=== PATIENT | male | born 1995 | race Hispanic/Latino ===

== ENCOUNTER 2018-05-22 23:29 | Observation (INO) | payer BC, OTHER ==
[~2018-05-22] VITALS: Ht 170.2 cm; Wt 86.2 kg
[2018-05-22] MEDS ORDERED: SODIUM CHLORIDE 0.9% 1000ML 1,000 ML IV STA (23:40)
[2018-05-22] MEDS ORDERED: ACETAMINOPHEN 325 MG TAB PO ONE (23:45)
[2018-05-22] MEDS ORDERED: ASPIRIN 81 MG CHEW TAB PO ONE (23:45)
[2018-05-23 00:03] LABS: BASOPHILS % 0.5 % (0.0-1.0); EOSINOPHILS # (AUTO) 0.1 (0.0-0.4); HEMATOCRIT 45.8 % (38.2-49.6); HEMOGLOBIN 15.6 g/dL (14.0-18.0); LYMPHOCYTES # (AUTO) 2.2 (1.0-3.2); LYMPHOCYTES % 26.7 % (18.0-39.1); MEAN CORPUSCULAR HEMOGLOBIN 27.4 pg (28-32); MEAN CORPUSCULAR HGB CONC 34.1 g/dL (31-35); MEAN CORPUSCULAR VOLUME 80.5 fL (81-99); MONOCYTES # (AUTO) 0.6 (0.2-0.8); MONOCYTES % 6.7 % (4.4-11.3); NEUTROPHILS # (AUTO) 5.3 (2.1-6.9); NEUTROPHILS % 64.7 % (38.7-80.0); PLATELET COUNT 208 x10e3/uL (140-360); RED BLOOD COUNT 5.69 x10e6/uL (4.3-5.7); RED CELL DISTRIBUTION WIDTH 13.1 % (11.7-14.4)
--- NOTE | 2018-05-23 00:14 | Diagnostic Imaging Report ---
EXAMINATION: CHEST 2 VIEWS INDICATION: ^Chest pain, look for CHF, enlarge Mediastinum COMPARISON: None FINDINGS: PA and lateral views TUBES and LINES: None. LUNGS: Lungs are well inflated. There is no evidence of pneumonia or pulmonary edema. PLEURA: No pleural effusion or pneumothorax. HEART AND MEDIASTINUM: The cardiomediastinal silhouette is unremarkable. BONES AND SOFT TISSUES: No acute osseous lesion. Soft tissues are unremarkable. UPPER ABDOMEN: No free air under the diaphragm. IMPRESSION: No acute thoracic abnormality. Signed by: Dr. Angel Whittaker MD on 05/23/2018 12:10 AM
[2018-05-23 00:21] LABS: ALANINE AMINOTRANSFERASE 79 IU/L (0-55); ALBUMIN 4.3 g/dL (3.5-5.0); ALBUMIN/GLOBULIN RATIO 1.2 (0.8-2.0); ALKALINE PHOSPHATASE 95 IU/L (40-150); ANION GAP 16.4 mmol/L (8-16); BLOOD UREA NITROGEN 13 mg/dL (7-26); BUN/CREATININE RATIO 12 (6-25); CARBON DIOXIDE 20 mmol/L (22-29); CHLORIDE 107 mmol/L (98-107); CREATINE KINASE 109 IU/L (30-200); CREATININE, SERUM 1.05 mg/dL (0.72-1.25); EST GLOMERULAR FILTRATION RATE > 60 ML/MIN (60-); GLUCOSE 133 mg/dL (74-118); POTASSIUM 3.4 mmol/L (3.5-5.1); SODIUM 140 mmol/L (136-145); STREPTOCOCCUS GRP A ANTIGEN NEGATIVE (NEGATIVE)
[2018-05-23 00:29] LABS: COLOR,URINE YELLOW (YELLOW)
[2018-05-23 00:30] LABS: BILIRUBIN,URINE NEGATIVE (NEGATIVE); CLARITY,URINE SL CLOUDY (CLEAR); KETONES,URINE NEGATIVE (NEGATIVE); LEUKOCYTE ESTERASE ,URINE NEGATIVE (NEGATIVE); NITRITE,URINE NEGATIVE (NEGATIVE); PROTEIN,URINE DIPSTICK NEGATIVE (NEGATIVE); URINE UROBILINOGEN 0.2 mg/dL (0.2 - 1)
[2018-05-23 00:31] LABS: BACTERIA,URINE FEW /HPF; EPITHELIAL CELLS,URINE RARE /LPF
[2018-05-23 00:35] LABS: INFLUENZAE A&B ANTIGEN (RAPID) NEGATIVE (NEGATIVE)
[2018-05-23] MEDS ORDERED: DIPHENHYDRAMINE HCL INJ 50 MG/ML VIAL IV PRN (00:45)
[2018-05-23] MEDS ORDERED: MORPHINE SULFATE INJ 4 MG/ML INJ 1ML IV PRN (00:45)
[2018-05-23] MEDS ORDERED: ONDANSETRON HCL INJ 2MG/ML 2ML 2 MG/ML VIAL IV PRN (00:45)
[2018-05-23] MEDS ORDERED: CEFEPIME HCL 2 GM VIAL IV SCH (00:45)
[2018-05-23] MEDS ORDERED: ACETAMINOPHEN 325 MG TAB PO PRN (00:45)
[2018-05-23] MEDS ORDERED: IBUPROFEN 200 MG TAB PO PRN (00:45)
[2018-05-23] MEDS ORDERED: ZOLPIDEM TARTRATE 5 MG TAB PO PRN (00:45)
[2018-05-23 00:52] LABS: CREATINE KINASE MB < 1.00 ng/mL (0-4.3)
--- OUTSIDE RECORDS SUMMARY | 2018-05-23 00:56 | XMS REPORT ---
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 Allergies, Adverse Reactions, Alerts This patient has no known allergies or adverse reactions. Medications This patient has no known medications. Results Test Description Test Time Test Comments Text Results Atomic Results Result Comments CHEST 2 VIEWS 2018-05-23 00:10:00 [place] [address] Patient Name: ALFONZO HOBBS MR #: [id number] : 1995 Age/Sex: 23/M Req #: [id number] Adm Physician: Ordered by: WALE MACKAY MD Report #: [id number] Location: ER Room/Bed: Procedure: [id number] DX/CHEST 2 VIEWS Exam Date: 05/22/18 Exam Time: 2354 REPORT STATUS: Signed EXAMINATION: CHEST 2 VIEWS INDICATION: Chest pain, look for CHF, enlarge Mediastinum COMPARISON: None FINDINGS: PA and lateral views TUBES and LINES: None. LUNGS: Lungs are well inflated. There is no evidence of pneumonia or pulmonary edema. PLEURA: No pleural effusion or pneumothorax. HEART AND MEDIASTINUM: The cardiomediastinal silhouette is unremarkable. BONES AND SOFT TISSUES: No acute osseous lesion. Soft tissues are unremarkable. UPPER ABDOMEN: No free air under the diaphragm. IMPRESSION: No acute thoracic abnormality. Signed by: Dr. Angel Whittaker MD on 05/23/2018 12:10 AM Dictated By: ANGEL WHITTAKER MD Transcribed By: ANAYA on 05/23/189 COPY TO: WALE MACKAY MD
[2018-05-23] MEDS ORDERED: no home meds (00:57)
[2018-05-23] MEDS ORDERED: CEFEPIME 2 GM/NS 0.9% 100 ML 100 ML IV ONE (02:10)
[2018-05-23] MEDS: VANCOMYCIN 1GM/NS 250 ML 250 ML IV SCH ×2 (02:21→14:20)
[2018-05-23 08:08] VITALS: BP 154/97
[2018-05-23 08:15] VITALS: BP 154/97
--- NOTE | 2018-05-23 08:16 | NUR ---
patient received from ER via WC, see admit assess. no fever at this time. no complaints of pain. vitals sable with no distress.
[2018-05-23 08:21] VITALS: BP 154/97
[2018-05-23] MEDS: FAMOTIDINE 20 MG TAB PO SCH ×2 (09:23→16:48)
[2018-05-23] MEDS ORDERED: HYDRALAZINE HCL 20 MG/ML VIAL IV PRN (09:45)
[2018-05-23] MEDS ORDERED: LISINOPRIL 10 MG TAB PO SCH (09:45)
[2018-05-23] MEDS ORDERED: POTASSIUM CHLORIDE 20 MEQ TAB CR PO NR (10:00)
[2018-05-23 12:50] VITALS: BP 143/77
[2018-05-23] MEDS: CEFEPIME 2 GM/NS 0.9% 100 ML 100 ML IV SCH (14:20)
--- NOTE | 2018-05-23 15:04 | Diagnostic Imaging Report ---
CT BRAIN WO HISTORY: Dizziness COMPARISON: None. TECHNIQUE: Noncontrast axial scans were obtained from skull base to the vertex. Coronal and sagittal reconstructions obtained from the axial data. One or more of the following dose reduction techniques were used: Automated exposure control, adjustment of the mA and/or kV according to patient size, and/or utilization of iterative reconstruction technique. DISCUSSION: Scalp/Skull: Unremarkable. Brain sulci: Appropriate for patient's age. Ventricles: Normal in size and configuration. No hydrocephalus. Extra-axial spaces: Focal prominent subarachnoid spaces along the right anterior temporal pole and left posterior cerebellar vermis are likely due to small arachnoid cysts. No additional masses or fluid collections. Parenchyma: No abnormal densities. No mass, hemorrhage, or large vascular territory acute infarct. Dural sinuses: No abnormal densities. Sellar/Suprasellar region: Intact. Skull base: Intact. Incidental findings: None. IMPRESSION: 1. No acute intracranial abnormalities. 2. Suspected small arachnoid cysts along the right anterior temporal pole and left posterior cerebellar vermis. Signed by: Dr. Сергей Clemente M.D. on 05/23/2018 3:01 PM
--- NOTE | 2018-05-23 15:11 | Diagnostic Imaging Report ---
EXAM: CT Abdomen WITH contrast INDICATION: Possible liver mass on echocardiography. Elevated LFTs. COMPARISON: None. TECHNIQUE: Abdomen was scanned utilizing a multidetector helical scanner from the lung base to the iliac crest after administration of IV contrast. Coronal and sagittal reformations were obtained. Routine protocol was performed. Scan was performed when during portal venous phase. IV CONTRAST: 100 cc of Isovue 370. ORAL CONTRAST: Water RADIATION DOSE: Total DLP: 1406 mGy*cm COMPLICATIONS: None FINDINGS: LINES and TUBES: None. LOWER THORAX: Unremarkable HEPATOBILIARY: Diffuse fatty liver. No focal hepatic lesions. No biliary ductal dilation. GALLBLADDER: No radio-opaque stones or sludge. No wall thickening. SPLEEN: No splenomegaly. PANCREAS: No focal masses or ductal dilatation. ADRENALS: No adrenal nodules KIDNEYS/URETERS: Kidneys enhance symmetrically. No hydronephrosis. No cystic or solid mass lesions. No stones. GI TRACT: No abnormal distention, wall thickening, or evidence of bowel obstruction. LYMPH NODES: No lymphadenopathy. VESSELS: Unremarkable. PERITONEUM / RETROPERITONEUM: No free air or fluid. BONES: Unremarkable. SOFT TISSUES: Unremarkable. IMPRESSION: Diffuse fatty liver without CT evidence of hepatic mass. Signed by: Dr. Elaine Michaud MD on 05/23/2018 3:07 PM
[2018-05-23 15:54] VITALS: BP 146/91
--- NOTE | 2018-05-23 19:00 | NUR ---
Report taken from previous nurse. call salcido within reach.
[2018-05-23 20:00] VITALS: BP 131/85
[2018-05-24] VITALS (7 sets, daily range): BP systolic 113–130; BP diastolic 60–83
[2018-05-24] MEDS: VANCOMYCIN 1GM/NS 250 ML 250 ML IV SCH ×2 (00:49→12:36)
--- NOTE | 2018-05-24 00:56 | Consultation ---
DATE OF CONSULTATION: 05/23/2018 Cardiology Consultation REASON FOR CONSULTATION: Tachycardia. HISTORY OF PRESENT ILLNESS: This is a 23-year-old man with a history of kidney stones. He was in the emergency department with feeling unwell and that his heart was racing. Upon arrival here, the patient was noted to be febrile with tachycardia. He denies any chest pain, shortness of breath, abdominal pain, cough, congestion, URI symptoms, rash, or sick contacts. He denies any cardiovascular history. PAST MEDICAL HISTORY: As stated above. PAST SURGICAL HISTORY: None recent. PAST FAMILY HISTORY: No premature coronary artery disease or sudden cardiac . SOCIAL HISTORY: No illicit drug use, alcohol use, or tobacco use. ALLERGIES: NO KNOWN DRUG ALLERGIES. MEDICATIONS: See medication reconciliation form. PHYSICAL EXAMINATION: VITAL SIGNS: Temperature is 99.2, heart rate is 109, respirations are 20, blood pressure is 146/91, oxygen saturation 98% on room air. GENERAL: He is a well-appearing, well-built male, lying comfortably in bed. HEAD: Normocephalic, atraumatic. EYES: Extraocular movements are intact. Conjunctivae are clear. NECK: No JVD. No bruits. CARDIOVASCULAR: Regular rate and rhythm. Normal S1 and S2. LUNGS: Clear to auscultation bilaterally. No wheezing. No rales. ABDOMEN: Soft, nontender, nondistended. Normal bowel sounds. EXTREMITIES: No clubbing, cyanosis, or edema. VASCULAR: 2+ pulses. SKIN: Warm, dry, and intact. NEUROLOGIC: No focal deficits noted. LABORATORY AND RADIOGRAPHIC DATA: All laboratory data reviewed. Negative troponin. Negative BNP. 2D echocardiogram showed preserved left ventricular systolic function. No valvular abnormalities. No vegetations. Carotid artery Doppler study showed normal velocities without stenosis. CT of the pelvis and abdomen showed diffuse fatty liver without any hepatic mass. Chest x-ray shows no acute thoracic abnormality. A 12-lead electrocardiogram shows sinus tachycardia. IMPRESSION: 1. Sinus tachycardia. 2. Fever. RECOMMENDATIONS: Continue infectious evaluation per primary team. The patient has a normal echocardiogram without any vegetations. CT abdomen was normal. No further cardiac workup is necessary. Law Reveles DO BM/MODL /[id number]
[2018-05-24 03:20] LABS: BASOPHILS % 0.4 % (0.0-1.0); EOSINOPHILS # (AUTO) 0.1 (0.0-0.4); EOSINOPHILS % 1.3 % (0.0-6.0); HEMOGLOBIN 14.5 g/dL (14.0-18.0); LYMPHOCYTES # (AUTO) 3.2 (1.0-3.2); LYMPHOCYTES % 39.1 % (18.0-39.1); MEAN CORPUSCULAR HEMOGLOBIN 27.5 pg (28-32); MEAN CORPUSCULAR HGB CONC 33.7 g/dL (31-35); MEAN CORPUSCULAR VOLUME 81.4 fL (81-99); MONOCYTES # (AUTO) 0.5 (0.2-0.8); MONOCYTES % 6.4 % (4.4-11.3); NEUTROPHILS # (AUTO) 4.3 (2.1-6.9); NEUTROPHILS % 52.4 % (38.7-80.0); PLATELET COUNT 192 x10e3/uL (140-360); RED BLOOD COUNT 5.28 x10e6/uL (4.3-5.7); RED CELL DISTRIBUTION WIDTH 13.4 % (11.7-14.4)
[2018-05-24 03:41] LABS: ANION GAP 11.7 mmol/L (8-16); BLOOD UREA NITROGEN 10 mg/dL (7-26); BUN/CREATININE RATIO 12 (6-25); CALCIUM 9.5 mg/dL (8.4-10.2); CARBON DIOXIDE 21 mmol/L (22-29); CHLORIDE 106 mmol/L (98-107); CREATININE, SERUM 0.86 mg/dL (0.72-1.25); EST GLOMERULAR FILTRATION RATE > 60 ML/MIN (60-); GLUCOSE 94 mg/dL (74-118); MAGNESIUM 2.5 MG/DL (1.3-2.1); POTASSIUM 3.7 mmol/L (3.5-5.1); SODIUM 135 mmol/L (136-145)
[2018-05-24 03:44] LABS: ALBUMIN 4.1 g/dL (3.5-5.0); BILIRUBIN,DIRECT 0.2 mg/dL (0.0-0.5)
[2018-05-24] MEDS: CEFEPIME 2 GM/NS 0.9% 100 ML 100 ML IV SCH ×2 (03:48→15:32)
[2018-05-24 04:16] LABS: B-TYPE NATRIURETIC PEPTIDE2 10.2 pg/mL (0-100)
--- NOTE | 2018-05-24 07:23 | NUR ---
Report given to oncoming nurse. Patient in no pain or distress. Call light within reach. Family member at bedside.
[2018-05-24] MEDS: LISINOPRIL 20 MG TAB PO SCH (09:00)
[2018-05-24] MEDS: FAMOTIDINE 20 MG TAB PO SCH ×2 (09:01→16:40)
--- NOTE | 2018-05-24 10:54 | NUR ---
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 CM/SW role and care transitions discussed. Anticipated discharge plan discussed along with duration of care. CM/SW discussed patients right to make decisions in care. CM/SW work hours given. Patient lives: HOUSE WITH FAMILY Admit/Transfer: VIA ED POA/Emergency contact: BROTHER MARTINA [phone] Current/Previous Home Health: NONE PCP/Follow-up Care: NONE Current/Previous DME: NONE Other Services: NONE Employment Status: CONSTRUCTION Areas of Concerns: NONE Referral Needs: NONE Education Needs: NONE IMM/BERNAL given and signed (if applicable):NA Goal for discharge:RETURN HOME CM/SW left business card at the bedside with contact information. Name and number was also written on the patients whiteboard. Patient verbalized understanding of discussion. CM will follow-up with ongoing discharge and transition of care needs.
--- NOTE | 2018-05-24 17:10 | Progress Note ---
DATE: 05/24/2018 Cardiology Progress Note SUBJECTIVE: No major events overnight. OBJECTIVE: VITAL SIGNS: Temperature afebrile, pulse 90, respiratory rate 18, blood pressure 123/71, and saturating 97% on room air. GENERAL: A well-developed, well-nourished man, in no acute distress. CARDIOVASCULAR: Regular rate and rhythm. No murmurs, rubs, or gallops. Palpable cardiac pulses. Palpable radial pulses. LUNGS: Clear to auscultation bilaterally. ABDOMEN: Soft, nontender, nondistended. NEUROLOGIC: Intact. Alert and oriented to person, place, and time. Normal affect. INPATIENT MEDICATIONS: Reviewed. LABORATORY DATA: Reviewed. TELEMETRY: Data reviewed, shows normal sinus rhythm. ASSESSMENT: 1. Sinus tachycardia. 2. Fever. RECOMMENDATIONS: Echo was essentially normal. The patient remained in sinus rhythm. Heart rate now improved with improvement of his fever. Thank you for this consult. We will continue to follow. MD JOSÉ MANUEL Fuentes/DIONNE /[id number]
--- NOTE | 2018-05-24 19:00 | NUR ---
received report from previous nurse. Patient in no pain or distress. family is at bedside. Call light within reach.
[2018-05-25] VITALS: BP 123/74
[2018-05-25 04:00] VITALS: BP 119/77
[2018-05-25 04:01] LABS: BASOPHILS % 0.5 % (0.0-1.0); EOSINOPHILS # (AUTO) 0.2 (0.0-0.4); EOSINOPHILS % 2.1 % (0.0-6.0); HEMATOCRIT 47.1 % (38.2-49.6); HEMOGLOBIN 16.1 g/dL (14.0-18.0); LYMPHOCYTES # (AUTO) 3.1 (1.0-3.2); LYMPHOCYTES % 37.9 % (18.0-39.1); MEAN CORPUSCULAR HEMOGLOBIN 27.7 pg (28-32); MEAN CORPUSCULAR HGB CONC 34.2 g/dL (31-35); MEAN CORPUSCULAR VOLUME 81.1 fL (81-99); MONOCYTES # (AUTO) 0.6 (0.2-0.8); MONOCYTES % 6.9 % (4.4-11.3); NEUTROPHILS # (AUTO) 4.3 (2.1-6.9); NEUTROPHILS % 52.4 % (38.7-80.0); PLATELET COUNT 201 x10e3/uL (140-360); RED BLOOD COUNT 5.81 x10e6/uL (4.3-5.7); RED CELL DISTRIBUTION WIDTH 13.3 % (11.7-14.4)
[2018-05-25 04:11] LABS: ANION GAP 13.9 mmol/L (8-16); BLOOD UREA NITROGEN 14 mg/dL (7-26); BUN/CREATININE RATIO 14 (6-25); CALCIUM 9.5 mg/dL (8.4-10.2); CARBON DIOXIDE 22 mmol/L (22-29); CHLORIDE 105 mmol/L (98-107); CREATININE, SERUM 0.97 mg/dL (0.72-1.25); EST GLOMERULAR FILTRATION RATE > 60 ML/MIN (60-); GLUCOSE 87 mg/dL (74-118); MAGNESIUM 2.6 MG/DL (1.3-2.1); POTASSIUM 3.9 mmol/L (3.5-5.1); SODIUM 137 mmol/L (136-145)
--- NOTE | 2018-05-25 04:32 | Consultation ---
DATE OF CONSULTATION: Consultation REASON FOR CONSULTATION: Fever. HISTORY OF PRESENT ILLNESS: This patient who is very pleasant 23-year-old male, denies past medical history, comes in with fever and chills for 2 days. No other complaints. The patient was admitted and the patient was consulted. I reviewed the case with the ER physician. PAST MEDICAL HISTORY: Denies. PAST SURGICAL HISTORY: Denies. ALLERGIES: NKA. SOCIAL HISTORY: There is no smoking, drug abuse, or alcohol abuse. He is single, not , not a lot of kids. PHYSICAL EXAMINATION: GENERAL: He is currently alert, oriented, and does not seem to be in acute distress. VITAL SIGNS: Stable. Currently afebrile. HEENT: . NECK: Supple. CHEST: Clear. HEART: S1 and S2 . ABDOMEN: Soft. Bowel sounds present. No tenderness. EXTREMITIES: No edema. SKIN: No rash. LABORATORY DATA: CAT scan of the abdomen and pelvis was negative, has diffuse fatty liver. CT of the brain was negative. Chest x-ray was negative. White count 8.2, hemoglobin 15. Influenza A and B is negative. IMPRESSION: Fever. I agree with blood cultures. I agree with IV antibiotic he is currently on. If these blood cultures are negative, can discontinue antibiotic. The patient is going to discharge to home . Otherwise, cultures are negative. MD ADELINE Casas/DIONNE /[id number]
--- NOTE | 2018-05-25 05:22 | Consultation ---
DATE OF CONSULTATION: 05/24/2018 HISTORY OF PRESENT ILLNESS: Mr. Salazar is a 23-year-old right hand dominant man without significant past medical history, admitted to the [facility] on May 23, 2018, with fever and tachycardia. During this hospitalization, the patient has endorsed dizziness. In addition, the patient underwent a CT of the brain without contrast which showed some abnormalities. Therefore, the Neurology Service is consulted to give recommendations as far as further evaluation and treatment of dizziness as well as the findings on CT of the brain without contrast. Mr. Salazar endorses a 3-week history of dizziness which he describes as fatigue and a low energy level. He does not report lightheadedness, vertigo, poor balance or impairment of gait. In addition to fatigue, the patient does report symptoms compatible with gastroesophageal reflux disease. He does not report a cough, nasal congestion, rhinorrhea, abdominal pain, nausea, vomiting, diarrhea, constipation, burning with urination, urinary frequency or urinary urgency. In addition, Mr. Salazar does not report neurological symptoms. Specifically, he does not report a visual field cutter as a disturbance, dysarthria, aphasia, facial droop, hemiparesis, hemihypesthesia, confusion or headache. Due to the patient's reported symptom of "dizziness," a CT of the brain without contrast was performed for further evaluation. This study showed small arachnoid cyst along the right anterior temporal pole as well as the left posterior cerebellar vermis. REVIEW OF SYSTEMS: Fatigue, symptoms of gastroesophageal reflux disease, very mild photophobia. Otherwise, a 12-point review of systems is negative. PAST MEDICAL HISTORY: Nephrolithiasis. PAST SURGICAL HISTORY: None. PAST HOSPITALIZATIONS: Nephrolithiasis. FAMILY MEDICAL HISTORY: Diabetes mellitus. SOCIAL HISTORY: Mr. Salazar is single. He works in construction. The patient does not report current or prior tobacco, alcohol, or recreational drug use. HOME MEDICATIONS: Tylenol as needed for headache. HOSPITAL MEDICATIONS: Acetaminophen, diphenhydramine, Pepcid, hydralazine, ibuprofen, lisinopril, morphine sulfate, Zofran and Ambien. ALLERGIES: NO KNOWN DRUG ALLERGIES. NO KNOWN FOOD ALLERGIES. NO KNOWN ALLERGIES TO LATEX. NO KNOWN ALLERGIES TO IODINE OR OTHER CONTRAST MATERIALS. PHYSICAL EXAMINATION: VITAL SIGNS: Height 67 inches, weight 192 pounds, BMI 30.1 kg/m2, blood pressure 125/60 mmHg, pulse 95 beats per minute, respiratory rate 16 breaths per minute, oxygen saturation 98% on room air. GENERAL: The patient is awake and alert, does not appear distressed. Obese. HEENT: Normocephalic, atraumatic. Pupils are equal, round, and reactive to light. Moist mucous membranes. NECK: Supple. No appreciable thyromegaly. No appreciable carotid bruits. CARDIOVASCULAR: S1, S2, regular rate and rhythm. No murmurs, rubs, or gallops. RESPIRATORY: Clear to auscultation bilaterally. No wheezes, rhonchi, or rales. EXTREMITIES: The skin is warm and dry. No clubbing, cyanosis, or edema. The posterior tibial and dorsalis pedis pulses are 2+ and symmetric. SKIN: No rashes or lesions. NEUROLOGIC: Memory/attention: The patient is awake and alert, oriented to person, place, time, and situation. Cranial Nerves: Cranial nerve I - not tested. Cranial nerve II, III, IV, and - pupils are equal and round, reactive briskly to light (from 4 mm to 2 mm). Extraocular movements intact. No nystagmus. Cranial nerve V - sensation to light touch and pinprick is intact in the bilateral V1 through V3 distributions. Strength in the temporalis and masseter muscles is within normal limits. Cranial nerve VII - the face is symmetric as are all facial movements. Strength is within normal limits. Cranial nerve VIII - hearing is intact to finger rub bilaterally. Cranial nerves IX and X - the soft palate elevates equally and symmetrically. Cranial nerve XI - normal strength to the bilateral sternocleidomastoid and trapezius muscles. Cranial nerve XII, the tongue protrudes in the midline and moves symmetrically from [id number]. Strength: Bulk is normal. Strength is 5/5 in the bilateral deltoids, biceps, triceps, wrist flexors and extensors, finger flexors and extensors, intrinsic hand muscles, hip flexors, knee flexors and extensors, ankle dorsiflexion and plantar flexion, and intrinsic foot muscles. Tone is normal. DTRs: Deep tendon reflexes are 2+ and symmetric at the triceps, biceps, brachioradialis, patellas, and achilles. Plantar responses are flexor bilaterally. Sensation: Sensation is intact to light touch and pinprick in both arms and both legs. Cerebellar: [id number]-bqas-zexymq and heel-waldron movements are intact without dysmetria or other impairment. Gait: Deferred. Speech: Spontaneous speech is normal without appreciable dysarthria or aphasia. Repetition is intact. Involuntary Movements: None. Pronator Drift: None. LABORATORY DATA: A basic metabolic panel is significant for a sodium of 135, carbon dioxide of 21. Magnesium is 2.5. A liver function panel is significant for an elevated AST of 67. Hemoglobin A1c 5.2. B-natriuretic peptide less than 10.0, 10.2. TSH 3.292. Cardiac enzymes are negative x1. A CBC with differential and platelets is unremarkable. Quantitative D-dimer 0.05. Urinalysis was significant for slightly cloudy urine with trace blood. Influenza types A and B antigen negative. Group A strep screen negative. A throat culture collected on May 22, 2018, revealed usual respiratory nathan. A urine culture collected on May 22, 2018, reveals no growth at 18 to 24 hours. Blood cultures collected on May 23, 2018, revealed no growth after 24 hours. DIAGNOSTIC STUDIES: Electrocardiogram on 05/22/2018: Sinus tachycardia at 129 beats per minute. Chest x-ray on 05/22/2018: No acute thoracic abnormality. Bilateral carotid artery ultrasounds with Doppler on 05/23/2018: No atherosclerosis in either carotid artery system. Flow is antegrade in the bilateral vertebral arteries. Echocardiogram on 05/23/2018: Ejection fraction 50 to 55%. Diastolic dysfunction. Trace mitral and tricuspid regurgitation. CT of the brain without contrast of 05/23/2018: On my review, there is no evidence of recent or remote ischemia, hemorrhage, mass or mass effect. There are small suspected arachnoid cysts along the right anterior temporal pole and the left posterior cerebellar vermis. Otherwise, cerebral volumes are appropriate for age. There are no findings suggestive of chronic small vessel ischemic disease. CT of the abdomen and pelvis on 05/23/2018: Diffuse fatty liver without CT evidence of hepatic mass. ASSESSMENT/PLAN: Mr. Salazar is a 23-year-old right hand dominant man without significant past medical history, admitted to the [facility] on May 22, 2018, with fever, tachycardia, and dizziness which he further describes as fatigue. The patient's neurological examination is nonfocal. His laboratory data and other diagnostic studies have been reviewed and are documented above. As detailed above, a CT of the brain without contrast revealed small subarachnoid cyst at the right anterior temporal pole and left posterior cerebellar vermis. These findings are developmental anomalies and have been present since . They are not contributing to the patient's current symptoms, nor should they cause any symptoms in the future. There are no recommendations for further evaluation or treatment from the Neurology Service at this time. Please call again with any questions or concerns. Kayla Gallardo MD CP/DIONNE /[id number]
--- NOTE | 2018-05-25 07:17 | NUR ---
Gave report to oncoming nurse. Call light within reach. Patient asleep in bed. NO pain or discharge. Family is at the bedside.
[2018-05-25 07:42] VITALS: BP 133/76
[2018-05-25] MEDS: FAMOTIDINE 20 MG TAB PO SCH ×2 (08:00→17:24)
[2018-05-25] MEDS: LISINOPRIL 20 MG TAB PO SCH (08:21)
[2018-05-25 08:49] VITALS: BP 133/76
[2018-05-25 11:25] VITALS: BP 138/71
[2018-05-25 15:34] VITALS: BP 127/71
--- NOTE | 2018-05-25 19:16 | Progress Note ---
DATE: Cardiology Progress Note SUBJECTIVE: No major events overnight. OBJECTIVE: VITAL SIGNS: Temperature afebrile, heart rate 92, respiratory rate 19, blood pressure 138/71, saturating 98% on room air. GENERAL: Well-developed, well-nourished, no acute distress. CARDIOVASCULAR: Regular rate and rhythm. No murmurs, rubs, or gallops. ABDOMEN: Soft, nontender, nondistended. LUNGS: Clear to auscultation bilaterally. NEURO AND PSYCH: Alert and oriented to person, place, and time. Normal affect. INPATIENT MEDICATIONS: Reviewed. LABORATORY DATA: Reviewed. IMAGING DATA: Reviewed. TELEMETRY DATA: Reviewed, shows normal sinus rhythm. ASSESSMENT: 1. Sinus tachycardia. 2. Hypertension. 3. Fever. PLAN: Echocardiogram essentially normal. Blood pressure well controlled. Continue current cardiovascular medications. MD JOSÉ MANUEL Fuentes/RAYAL /[id number]
== END 2018-05-25 20:30 | disposition home or self-care (01) ==
LOC: ER 23:29 → ERHOLD 05-23 00:54 → IMCU 05-23 07:59
PROVIDERS: ADMIT Internal Medicine; ATTEND Internal Medicine
DX: R00.0 Tachycardia, unspecified (principal); R50.9 Fever, unspecified; Z87.442 Personal history of urinary calculi; Z83.3 Family history of diabetes mellitus; I10 Essential (primary) hypertension; E87.6 Hypokalemia; R74.0 Nonspecific elevation of levels of transaminase and lactic acid dehydrogenase [LDH]; R42 Dizziness and giddiness; R93.0 Abnormal findings on diagnostic imaging of skull and head, not elsewhere classified
CPT/HCPCS: 36415 ×3; 70450; 71046; 74177; 80048 ×2; 80053; 80076; 81001; 82550; 82553; 83036; 83518; 83735 ×2; 83880 ×2; 84443; 84484; 85025 ×3; 85379; 87040; 87070; 87086; 87400; 93005; 93306; 93880; 99284; G0378 ×3; J0692; J3370 ×2; J7030

== ENCOUNTER 2024-03-27 02:11 | Inpatient (IN) | payer BC ==
[2024-03-27] VITALS (11 sets, daily range): BP systolic 134–179; BP diastolic 84–99; PULSE 72–124; RESP 16–22; TEMP 98.1–99.1; O2SAT 97–100
[~2024-03-27] VITALS: Ht 170.2 cm; Wt 88.5 kg
[~2024-03-27 02:11] MED LIST: no home meds
[2024-03-27] MEDS ORDERED: ONDANSETRON HCL INJ 2MG/ML 2ML 2 MG/ML VIAL ONE ×3 (02:16→09:52)
[2024-03-27] MEDS ORDERED: KETOROLAC TROMETHAMINE 30 MG/ML VIAL ONE (02:16)
[2024-03-27] MEDS: ONDANSETRON HCL INJ 2MG/ML 2ML 2 MG/ML VIAL IV STA (02:23)
[2024-03-27] MEDS: KETOROLAC TROMETHAMINE 30 MG/ML VIAL IV STA (02:23)
[2024-03-27 02:41] LABS: BASOPHILS # (AUTO) 0.1 (0.0-0.1); BASOPHILS % 0.4 % (0.0-1.0); EOSINOPHILS # (AUTO) 0.1 (0.0-0.4); EOSINOPHILS % 0.5 % (0.0-6.0); HEMATOCRIT 45.8 % (38.2-49.6); HEMOGLOBIN 15.2 g/dL (14.0-18.0); LYMPHOCYTES # (AUTO) 2.3 (1.0-3.2); LYMPHOCYTES % 16.3 % (18.0-39.1); MEAN CORPUSCULAR HEMOGLOBIN 28.6 pg (28-32); MEAN CORPUSCULAR HGB CONC 33.2 g/dL (31-35); MEAN CORPUSCULAR VOLUME 86.1 fL (81-99); MONOCYTES # (AUTO) 0.5 (0.2-0.8); MONOCYTES % 3.8 % (4.4-11.3); NEUTROPHILS # (AUTO) 10.8 (2.1-6.9); NEUTROPHILS % 78.1 % (38.7-80.0); PLATELET COUNT 200 x10e3/uL (140-360); RED BLOOD COUNT 5.32 x10e6/uL (4.3-5.7); WHITE BLOOD COUNT 13.86 x10e3/uL (4.8-10.8)
[2024-03-27] MEDS: SODIUM CHLORIDE 0.9% 1000ML 1,000 ML IV STA (02:44)
[2024-03-27 02:56] LABS: ALANINE AMINOTRANSFERASE 75 IU/L (0-55); ALBUMIN 4.2 g/dL (3.5-5.0); ALBUMIN/GLOBULIN RATIO 1.3 (0.8-2.0); ALKALINE PHOSPHATASE 89 IU/L (40-150); ANION GAP 18.1 mmol/L (8-16); BILIRUBIN,TOTAL 0.3 mg/dL (0.2-1.2); BLOOD UREA NITROGEN 13 mg/dL (7-26); BUN/CREATININE RATIO 11 (6-25); CALCIUM 8.8 mg/dL (8.4-10.2); CARBON DIOXIDE 20 mmol/L (22-29); CHLORIDE 105 mmol/L (98-107); CREATININE, SERUM 1.14 mg/dL (0.72-1.25); EST GLOMERULAR FILTRATION RATE 88 ML/MIN (>=60); GLUCOSE 210 mg/dL (74-118); SODIUM 140 mmol/L (136-145); TOTAL PROTEIN 7.4 g/dL (6.5-8.1)
[2024-03-27 02:57] LABS: CLARITY,URINE CLEAR (CLEAR); COLOR,URINE YELLOW (YELLOW); LIPASE > 1200 U/L (8-78); POTASSIUM 3.1 mmol/L (3.5-5.1)
[2024-03-27 02:58] LABS: BILIRUBIN,URINE NEGATIVE (NEGATIVE); GLUCOSE, URINE NEGATIVE (NEGATIVE); KETONES,URINE NEGATIVE (NEGATIVE); LEUKOCYTE ESTERASE ,URINE NEGATIVE (NEGATIVE); NITRITE,URINE NEGATIVE (NEGATIVE); PH,URINE 5.5 (5 - 7); PROTEIN,URINE DIPSTICK 1+ (NEGATIVE); URINE UROBILINOGEN 0.2 mg/dL (0.2 - 1)
[2024-03-27 03:11] LABS: BACTERIA,URINE MANY /HPF; CALCIUM OXALATE CRYSTALS,UR MODERATE (FEW); EPITHELIAL CELLS,URINE FEW /LPF; RBC,URINE >50 /HPF (0-5)
[2024-03-27] MEDS: SODIUM CHLORIDE 0.9% 1000ML 1,000 ML IV SCH (04:41)
[2024-03-27] MEDS: ONDANSETRON HCL INJ 2MG/ML 2ML 2 MG/ML VIAL IV PRN (06:46)
[2024-03-27] MEDS: Morphine 4mg INJECTION 4 MG/ML INJ IV PRN (06:48)
[2024-03-27] MEDS ORDERED: ACETAMINOPHEN 325 MG SUPP PR PRN (08:45)
[2024-03-27] MEDS: FAMOTIDINE 20 MG/2 ML VIAL IV SCH (09:00)
[2024-03-27 09:01] LABS: CHOL/HDL RATIO 4.9 (3.9-4.7); MAGNESIUM 1.6 MG/DL (1.3-2.1); PHOSPHORUS 1.5 MG/DL (2.3-4.7)
[2024-03-27] MEDS ORDERED: FENTANYL CITRATE/PF 100MCG/2 ML INJ ONE (09:21)
[2024-03-27] MEDS ORDERED: MIDAZOLAM HCL 2 MG/2 ML VIAL ONE (09:21)
[2024-03-27] MEDS ORDERED: LIDOCAINE HCL 2% LOCAL INJ 5 ML SDV VIAL INJ ONE (09:22)
[2024-03-27] MEDS ORDERED: PROPOFOL IV EMULSION 10 MG/ML 20 ML VIAL ONE ×2 (09:22→09:41)
[2024-03-27] MEDS ORDERED: CEFTRIAXONE 1 GM VIAL ONE ×2 (09:35)
[2024-03-27] MEDS ORDERED: DEXAMETHASONE SOD PHOS INJ 4 MG/ML SDV ONE (09:39)
[2024-03-27 10:04] LABS: FREE T4 (FREE THYROXINE) 0.98 ng/dL (0.8-1.8); THYROID STIMULATING HORMONE 1.191 uIU/mL (0.350-4.940)
[2024-03-27] MEDS ORDERED: POTASSIUM CHLORIDE 10MEQ EA PO ONE (10:15)
[2024-03-27] MEDS ORDERED: ACETAMINOPHEN/CODEINE 300MG - 30MG TAB PO PRN (10:15)
[2024-03-27] MEDS: MAGNESIUM SULFATE 2GM/50ML 50 ML IV ONE (11:11)
[2024-03-27] MEDS: LACTATED RINGER'S 1,000 ML INJ SCH (11:14)
[2024-03-27] MEDS: PHENAZOPYRIDINE HCL 100 MG TAB PO PRN (11:59)
[2024-03-27] MEDS: POTASSIUM CHLORIDE 10MEQ EA PO ONE (14:57)
[2024-03-27] MEDS: POTASSIUM PHOSPHATE 15 MM in SODIUM CHLORIDE 0.9% 250ML 250 ML IV ONE (15:05)
[2024-03-27] MEDS ORDERED: POLYETHYLENE GLYCOL 3350 17 GM PACK PO PRN (16:15)
[2024-03-27] MEDS ORDERED: ACETAMINOPHEN 325 MG TAB PO PRN (16:15)
[2024-03-27] MEDS: HYDRALAZINE HCL 20 MG/ML VIAL IV PRN (16:39)
[2024-03-27] MEDS: DOCUSATE SODIUM 100 MG CAP PO SCH (17:42)
[2024-03-28] VITALS (10 sets, daily range): BP systolic 118–135; BP diastolic 68–78; PULSE 74–105; RESP 17–20; TEMP 98–99; O2SAT 96–99
[2024-03-28 07:10] LABS: BASOPHILS % 0.2 % (0.0-1.0); EOSINOPHILS % 0.1 % (0.0-6.0); HEMATOCRIT 40.1 % (38.2-49.6); HEMOGLOBIN 13.5 g/dL (14.0-18.0); LYMPHOCYTES # (AUTO) 1.2 (1.0-3.2); LYMPHOCYTES % 11.8 % (18.0-39.1); MEAN CORPUSCULAR HEMOGLOBIN 28.4 pg (28-32); MEAN CORPUSCULAR HGB CONC 33.7 g/dL (31-35); MEAN CORPUSCULAR VOLUME 84.4 fL (81-99); MONOCYTES # (AUTO) 0.7 (0.2-0.8); MONOCYTES % 6.6 % (4.4-11.3); NEUTROPHILS # (AUTO) 8.2 (2.1-6.9); NEUTROPHILS % 80.8 % (38.7-80.0); PLATELET COUNT 196 x10e3/uL (140-360); RED BLOOD COUNT 4.75 x10e6/uL (4.3-5.7); RED CELL DISTRIBUTION WIDTH 13.6 % (11.7-14.4); WHITE BLOOD COUNT 10.12 x10e3/uL (4.8-10.8)
[2024-03-28 07:39] LABS: ALBUMIN 3.6 g/dL (3.5-5.0); ALBUMIN/GLOBULIN RATIO 1.3 (0.8-2.0); ANION GAP 14.4 mmol/L (8-16); BILIRUBIN,TOTAL 0.5 mg/dL (0.2-1.2); CALCIUM 8.6 mg/dL (8.4-10.2); CREATININE, SERUM 0.91 mg/dL (0.72-1.25); POTASSIUM 4.4 mmol/L (3.5-5.1); TOTAL PROTEIN 6.3 g/dL (6.5-8.1)
[2024-03-28 08:06] LABS: MAGNESIUM 2.1 MG/DL (1.3-2.1); PHOSPHORUS 3.4 MG/DL (2.3-4.7)
[2024-03-28] MEDS: SOLIFENACIN SUCCINATE 5 MG TAB PO SCH (09:48)
[2024-03-29] VITALS: BP 125/79; PULSE 74; RESP 17; TEMP 98.5; O2SAT 100
[2024-03-29 04:00] VITALS: BP 120/80; PULSE 77; RESP 17; TEMP 98.9; O2SAT 100
[2024-03-29 05:10] LABS: CALCIUM 8.6 mg/dL (8.7-10.2)
[2024-03-29 06:51] LABS: BASOPHILS # (AUTO) 0.1 (0.0-0.1); BASOPHILS % 0.6 % (0.0-1.0); EOSINOPHILS % 0.5 % (0.0-6.0); HEMATOCRIT 42.1 % (38.2-49.6); LYMPHOCYTES # (AUTO) 2.6 (1.0-3.2); LYMPHOCYTES % 30.1 % (18.0-39.1); MEAN CORPUSCULAR HEMOGLOBIN 28.5 pg (28-32); MEAN CORPUSCULAR HGB CONC 33.3 g/dL (31-35); MEAN CORPUSCULAR VOLUME 85.6 fL (81-99); MONOCYTES # (AUTO) 0.6 (0.2-0.8); MONOCYTES % 6.8 % (4.4-11.3); NEUTROPHILS # (AUTO) 5.2 (2.1-6.9); NEUTROPHILS % 61.4 % (38.7-80.0); PLATELET COUNT 169 x10e3/uL (140-360); RED BLOOD COUNT 4.92 x10e6/uL (4.3-5.7); RED CELL DISTRIBUTION WIDTH 13.8 % (11.7-14.4); WHITE BLOOD COUNT 8.51 x10e3/uL (4.8-10.8)
[2024-03-29 07:23] LABS: ANION GAP 14.1 mmol/L (8-16); CREATININE, SERUM 1.07 mg/dL (0.72-1.25); POTASSIUM 4.1 mmol/L (3.5-5.1)
[2024-03-29 07:38] VITALS: PULSE 78; RESP 20; O2SAT 96
[2024-03-29 08:55] VITALS: BP 131/85; PULSE 70; RESP 16; TEMP 98.3; O2SAT 97
[2024-03-29 09:14] VITALS: BP 131/85; PULSE 70; RESP 16; TEMP 98.3; O2SAT 97
[2024-03-29 12:16] VITALS: BP 142/92; PULSE 76; RESP 17; TEMP 98.8; O2SAT 96
[2024-03-29] MEDS ORDERED: ACETAMINOPHEN325 M1 PO (12:22)
[2024-03-29] MEDS ORDERED: VESICARE5 MG PO (12:22)
[2024-03-29] MEDS ORDERED: Acetaminophen/Codeine 300-30MG PO (12:22)
[2024-03-29] MEDS ORDERED: ONDANSETRON ODT4 MG PO (12:22)
== END 2024-03-29 14:47 | disposition home or self-care (01) | DRG 661 ==
LOC: ER 02:16 → ERHOLD 04:24 → MED/SURG3 04:48
PROVIDERS: ADMIT Internal Medicine; ATTEND Internal Medicine
PROC: 0T768DZ Dilation of Right Ureter with Intraluminal Device, Via Natural or Artificial Opening Endoscopic (ICD-10-PCS; 2024-03-27)
PROC: BT141ZZ Fluoroscopy of Kidneys, Ureters and Bladder using Low Osmolar Contrast (ICD-10-PCS; 2024-03-27)
PROC: 0T9B70Z Drainage of Bladder with Drainage Device, Via Natural or Artificial Opening (ICD-10-PCS; 2024-03-27)
PROC: 0DJDXZZ Inspection of Lower Intestinal Tract, External Approach (ICD-10-PCS; 2024-03-27)
PROC: 0T7D7ZZ Dilation of Urethra, Via Natural or Artificial Opening (ICD-10-PCS; principal; 2024-03-27 09:25)
DX: N13.2 Hydronephrosis with renal and ureteral calculous obstruction (principal); E83.39 Other disorders of phosphorus metabolism; E83.42 Hypomagnesemia; E87.6 Hypokalemia; N23 Unspecified renal colic; N47.1 Phimosis; R31.0 Gross hematuria; N35.919 Unspecified urethral stricture, male, unspecified site; E86.0 Dehydration; R73.9 Hyperglycemia, unspecified; E78.1 Pure hyperglyceridemia; K76.0 Fatty (change of) liver, not elsewhere classified; D72.829 Elevated white blood cell count, unspecified
CPT/HCPCS: 36415; 74176; 74420; 80048; 80053; 80061; 80320; 81001; 83036; 83690; 83735; 83970; 84100; 84439; 84443; 84550; 85025; 94799; 99284; C1758; C2617; J0360; J0696; J1100; J1885; J2003; J2250; J2270; J2405; J3475; J7030; J7050

== ENCOUNTER 2024-04-16 21:00 | Emergency (ER) | payer BC ==
[~2024-04-16] VITALS: Ht 170.2 cm; Wt 86.2 kg
[~2024-04-16 21:00] MED LIST changes: +ACETAMINOPHEN325 M1 PO; +Acetaminophen/Codeine 300-30MG PO; +ONDANSETRON ODT4 MG PO; +VESICARE5 MG PO
[2024-04-16] MEDS: ACETAMINOPHEN 325 MG TAB PO STA (21:19)
[2024-04-16 21:28] LABS: STREPTOCOCCUS GRP A ANTIGEN NEGATIVE (NEGATIVE)
[2024-04-16 21:36] LABS: CORONAVIRUS COVID-19 AG NEGATIVE (NEGATIVE); INFLUENZA A AG NEGATIVE (NEGATIVE); INFLUENZA B AG NEGATIVE (NEGATIVE)
[2024-04-16 22:26] LABS: BILIRUBIN,URINE 1+ (NEGATIVE); CLARITY,URINE CLOUDY (CLEAR); COLOR,URINE AMBER (YELLOW); GLUCOSE, URINE NEGATIVE (NEGATIVE); KETONES,URINE 2+ (NEGATIVE); LEUKOCYTE ESTERASE ,URINE 1+ (NEGATIVE); NITRITE,URINE NEGATIVE (NEGATIVE); PH,URINE 6 (5 - 7); PROTEIN,URINE DIPSTICK 2+ (NEGATIVE); URINE UROBILINOGEN 1 mg/dL (0.2 - 1)
[2024-04-16 22:35] LABS: BACTERIA,URINE MANY /HPF; EPITHELIAL CELLS,URINE FEW /LPF; RBC,URINE >50 /HPF (0-5); WBC,URINE (MAN) 21-50 /HPF (0-5)
[2024-04-16] MEDS ORDERED: AUGMENTIN 500-1 EACH PO (22:50)
[2024-04-16 23:03] VITALS: PULSE 98; RESP 16; TEMP 99.7; O2SAT 100
== END 2024-04-16 23:06 | disposition home or self-care (01) ==
LOC: ER 21:11
DX: R50.9 Fever, unspecified (principal); J06.9 Acute upper respiratory infection, unspecified; N39.0 Urinary tract infection, site not specified; R30.0 Dysuria; R51.9 Headache, unspecified; R05.9 Cough, unspecified; Z11.52 Encounter for screening for COVID-19
CPT/HCPCS: 81001; 83518; 87070; 87086; 87186; 99283

== ENCOUNTER → 2024-07-05 | Outpatient (REF) | payer BC ==
[~2024-07-05] MED LIST changes: +AUGMENTIN 500-1 EACH PO
== END ==
LOC: RAD 10:34
PROVIDERS: ATTEND Urology
DX: N20.0 Calculus of kidney (principal); T19.1XXA Foreign body in bladder, initial encounter
CPT/HCPCS: 74018

== ENCOUNTER → 2024-07-15 | Day surgery (SDC) | payer BC ==
[2024-07-14 13:53] LABS: BASOPHILS % 0.3 % (0.0-1.0); EOSINOPHILS # (AUTO) 0.2 (0.0-0.4); HEMATOCRIT 37.4 % (38.2-49.6); HEMOGLOBIN 12.1 g/dL (14.0-18.0); LYMPHOCYTES # (AUTO) 1.6 (1.0-3.2); LYMPHOCYTES % 25.8 % (18.0-39.1); MEAN CORPUSCULAR HGB CONC 32.4 g/dL (31-35); MEAN CORPUSCULAR VOLUME 77.3 fL (81-99); MONOCYTES # (AUTO) 0.3 (0.2-0.8); MONOCYTES % 4.5 % (4.4-11.3); NEUTROPHILS % 66.1 % (38.7-80.0); PLATELET COUNT 240 x10e3/uL (140-360); RED BLOOD COUNT 4.84 x10e6/uL (4.3-5.7); WHITE BLOOD COUNT 6.01 x10e3/uL (4.8-10.8)
[2024-07-14 14:22] LABS: ANION GAP 16.4 mmol/L (8-16); CALCIUM 9.1 mg/dL (8.4-10.2); CREATININE, SERUM 0.95 mg/dL (0.72-1.25); URIC ACID 6.1 mg/dL (4.8-8.0)
[2024-07-14 14:23] LABS: POTASSIUM 3.4 mmol/L (3.5-5.1)
[~2024-07-15] MED LIST changes: +DEXAMETHASONE SOD PHOS INJ 4 MG/ML SDV ONE; +FENTANYL CITRATE/PF 100MCG/2 ML INJ ONE; +LIDOCAINE HCL 2% LOCAL INJ 5 ML SDV VIAL INJ ONE; +ONDANSETRON HCL INJ 2MG/ML 2ML 2 MG/ML VIAL ONE; +PROPOFOL IV EMULSION 10 MG/ML 20 ML VIAL ONE; +SEVOFLURANE INHAL SOLN 250 ML PEN BTL ONE
[2024-07-15] MEDS: LACTATED RINGER'S 1,000 ML ONE (14:50)
[2024-07-15] MEDS: PIPERACILLIN/TAZOBACTAM 3.375 GM VIAL ONE (14:50)
[2024-07-15] MEDS: GENTAMICIN 80MG/NS 100 ML 200 ML IV ONE (14:52)
[2024-07-15] MEDS: PHENAZOPYRIDINE HCL 100 MG TAB ONE (17:12)
[2024-07-15 17:30] VITALS: BP 126/81; PULSE 75; RESP 16; O2SAT 99
== END | disposition home or self-care (01) ==
LOC: OR 05:00
PROVIDERS: ATTEND Urology
DX: N20.0 Calculus of kidney (principal); Z46.6 Encounter for fitting and adjustment of urinary device; N35.819 Other urethral stricture, male, unspecified site; N28.89 Other specified disorders of kidney and ureter; R35.0 Frequency of micturition; I48.91 Unspecified atrial fibrillation; E66.9 Obesity, unspecified; Z01.812 Encounter for preprocedural laboratory examination; Z01.818 Encounter for other preprocedural examination; Z68.30 Body mass index [BMI] 30.0-30.9, adult
CPT/HCPCS: 36415; 52351; 74018; 74420; 80048; 84550; 85025; 87086; 88300; C1758; C1769; J1100; J1580; J2003; J2405; J2543; J2704; J3010; J7121